=== PATIENT | female | born 1950 | race Caucasian/White ===

== ENCOUNTER 2017-07-23 16:42 | Observation (INO) | payer BC ==
[~2017-07-23] VITALS: Ht 162.6 cm; Wt 92.4 kg
[~2017-07-23 16:42] MED LIST: ATORVASTATIN CA20 MG PO; BENICAR20 MG PO; BENICAR40 MG PO; CLARITIN10 M3 PO; CO Q-10100 MG PO; DEXILANT60 MG PO; FIBER THERAPY0.52 GM PO; FISH OIL 1,2001 EAC4 PO; FLONASE16 G1 BOTH NARES; GLUCOSAMINE-CH1 EA27 PO; HYDROCHLOROTHIA25 MG PO; IBUPROFEN800 MG PO; IMITREX100 MG PO; LIPITOR20 MG PO; LIPITOR40 MG PO; LO-DOSE ASPIRIN81 M1 PO; MOTRIN600 MG PO; RANITIDINE HCL150 MG PO; SINGULAIR10 MG PO; SKELAXIN800 MG PO; VERAPAMIL SR120 MG PO; VITAMIN D2000 UNIT PO; ZOFRAN8 MG PO
[2017-07-23 17:30] LABS: HEMATOCRIT 36.1 % (36.0-46.0); MCH 29.3 PG (29.0-34.0); MCHC 33.8 G/DL (30.0-36.0); MCV 86.6 FL (83-99); MEAN PLAT.VOLUME 10.5 uM^3 (9.5-12.4); PLATELET COUNT 265 K/uL (156-360); RBC DIS.WIDTH-CV 13.1 % (11.8-14.6); RBC DIS.WIDTH-SD 40.9 % (39-53); RED BLOOD COUNT 4.17 M/uL (3.80-5.20)
[2017-07-23 17:38] LABS: CHLORIDE 106 mEq/L (99-109); POTASSIUM 3.2 mEq/L (3.7-5.4); SODIUM 142 mEq/L (136-147)
[2017-07-23 17:40] LABS: GLUCOSE 98 mg/dL (70-99)
[2017-07-23 17:41] LABS: ANION GAP 12 MEQ/L (2-14)
[2017-07-23 17:43] LABS: GFR ESTIMATE (CALCULATED) 37 mL/min/
[2017-07-23 17:44] LABS: UREA NITROGEN (BUN) 30 mg/dL (9-23)
[2017-07-23 17:45] LABS: INTER. NORMALIZED RATIO 1.1
[2017-07-23 17:48] LABS: PTT 27.8 SEC (25-37)
[2017-07-23 17:49] LABS: TROP-I INTERPRETATION NEGATIVE; TROPONIN-I < 0.01 ng/mL (0.0-0.30)
[2017-07-23] MEDS ORDERED: MOTRIN600 MG PO (18:33)
[2017-07-23] MEDS ORDERED: ADVIL200 MG PO (18:34)
[2017-07-23] MEDS ORDERED: CENTRUM SILVER1 EAC3 PO (18:35)
[2017-07-23] MEDS ORDERED: FLONASE16 G1 BOTH NARES (18:37)
[2017-07-23 21:15] VITALS: BP 158/92
[2017-07-23 21:20] LABS: TROP-I INTERPRETATION NEGATIVE; TROPONIN-I < 0.01 ng/mL (0.0-0.30)
[2017-07-23 23:10] LABS: TROP-I INTERPRETATION NEGATIVE; TROPONIN-I < 0.01 ng/mL (0.0-0.30)
[2017-07-23 23:33] VITALS: BP 141/74
[2017-07-24 03:12] VITALS: BP 137/64
[2017-07-24 05:36] LABS: HEMATOCRIT 34.2 % (36.0-46.0); MCV 87.9 FL (83-99); MEAN PLAT.VOLUME 10.8 uM^3 (9.5-12.4); PLATELET COUNT 236 K/uL (156-360); RBC DIS.WIDTH-CV 13.2 % (11.8-14.6); RBC DIS.WIDTH-SD 42.1 % (39-53); RED BLOOD COUNT 3.89 M/uL (3.80-5.20); WHITE BLOOD COUNT 5.1 K/uL (4.1-10.2)
[2017-07-24 05:53] LABS: TROP-I INTERPRETATION NEGATIVE; TROPONIN-I < 0.01 ng/mL (0.0-0.30)
[2017-07-24 06:02] LABS: ANION GAP 8 MEQ/L (2-14); CHLORIDE 106 MEQ/L (99-109); GFR ESTIMATE (CALCULATED) > 59 mL/min/; GLUCOSE 85 mg/dL (70-99); POTASSIUM 3.8 MEQ/L (3.7-5.4); SAMPLE HEMOLYSIS CHECK 0; SAMPLE ICTERIC CHECK 0; SAMPLE LIPEMIA CHECK 0; SODIUM 141 MEQ/L (136-147); UREA NITROGEN (BUN) 21 mg/dL (9-23)
[2017-07-24 08:15] VITALS: BP 119/59
== END 2017-07-24 11:10 | disposition home or self-care (01) ==
LOC: EME 16:42 → EDOF 19:54 → ENRESERV 19:56 → 5WEST 21:06
PROVIDERS: Hospitalist; Physician Assistant
DX: R07.9 Chest pain, unspecified (principal); R06.09 Other forms of dyspnea; M54.9 Dorsalgia, unspecified; N17.9 Acute kidney failure, unspecified; I10 Essential (primary) hypertension; E78.5 Hyperlipidemia, unspecified; K21.9 Gastro-esophageal reflux disease without esophagitis; I47.1 Supraventricular tachycardia; E87.6 Hypokalemia; Z79.82 Long term (current) use of aspirin; Z90.49 Acquired absence of other specified parts of digestive tract; Z82.49 Family history of ischemic heart disease and other diseases of the circulatory system; Z88.0 Allergy status to penicillin; Z88.5 Allergy status to narcotic agent; Z87.891 Personal history of nicotine dependence
CPT/HCPCS: 71020; 80048; 84484; 85027; 85610; 85730; 93005; 99281; 99285; G0378; J7030

== ENCOUNTER 2017-08-05 09:51 | Day surgery (SDC) | payer BC ==
[~2017-08-05] VITALS: Ht 162.6 cm; Wt 87.0 kg
[~2017-08-05 09:51] MED LIST changes: +ADVIL200 MG PO; +CENTRUM SILVER1 EAC3 PO; +ZANTAC150 MG PO
== END 2017-08-05 18:05 | disposition home or self-care (01) ==
LOC: CATH 09:51
DX: I34.0 Nonrheumatic mitral (valve) insufficiency (principal); R07.9 Chest pain, unspecified; I10 Essential (primary) hypertension; E78.5 Hyperlipidemia, unspecified; E66.9 Obesity, unspecified; Z68.32 Body mass index [BMI] 32.0-32.9, adult; Z82.49 Family history of ischemic heart disease and other diseases of the circulatory system
CPT/HCPCS: C1769; C1887; J1644; J2250; J3010; J7040